=== PATIENT | male | born 1950 | race Caucasian/White ===

== ENCOUNTER 2016-11-25 11:18 | Inpatient (IN) | payer OTHER ==
[~2016-11-25] VITALS: Ht 182.9 cm; Wt 128.0 kg
[~2016-11-25 11:18] MED LIST: DEBROX15 ML RIGHT EAR; MOTRIN800 MG PO; NOHOMEMEDS; TYLENOL325 M1 PO
[2016-11-25 12:48] LABS: HEMATOCRIT 42.5 % (38.0-50.0); MCH 31.3 PG (29.0-34.0); MCHC 33.2 G/DL (30.0-36.0); MCV 94.2 FL (86-99); MEAN PLAT.VOLUME 9.6 uM^3 (9.0-12.4); PLATELET COUNT 237 K/uL (156-360); RBC DIS.WIDTH-SD 46.1 % (39-53); RED BLOOD COUNT 4.51 M/uL (4.00-5.50); WHITE BLOOD COUNT 4.7 K/uL (4.1-10.2)
[2016-11-25 12:57] LABS: CHLORIDE 103 mEq/L (99-109); POTASSIUM 4.3 mEq/L (3.7-5.4); SODIUM 138 mEq/L (136-147)
[2016-11-25 12:59] LABS: GLUCOSE 129 mg/dL (70-99)
[2016-11-25 13:00] LABS: ANION GAP 10 MEQ/L (2-14)
[2016-11-25 13:03] LABS: GFR ESTIMATE (CALCULATED) > 59 mL/min/
[2016-11-25 13:04] LABS: UREA NITROGEN (BUN) 6 mg/dL (9-23)
[2016-11-25 14:13] LABS: TROP-I INTERPRETATION NEGATIVE; TROPONIN-I 0.01 ng/mL (0.0-0.30)
[2016-11-25] MEDS ORDERED: ALEVE220 MG PO (14:53)
[2016-11-25 18:04] VITALS: BP 153/79
[2016-11-26] VITALS (7 sets, daily range): BP systolic 113–140; BP diastolic 56–73
[2016-11-26 07:41] LABS: HDL CHOLESTEROL 38 MG/DL (Desirable>=40); LDL CHOLESTEROL 109 mg/dL (Desirable<100); NON-HDL CHOLESTEROL 129 mg/dL (Desirable<160); TOTAL CHOLESTEROL 167 mg/dL (Desirable<200); TRIGLYCERIDES 100 MG/DL (Normal: <150)
[2016-11-26 09:01] LABS: Estimated Average Glucose 143 mg/dL (70-123); HEMOGLOBIN A1c (GLYCOHEMOGLOB) 6.6 % HGB (Below 5.7)
[2016-11-27 04:09] VITALS: BP 127/68
[2016-11-27 07:45] VITALS: BP 148/60
[2016-11-27 11:43] VITALS: BP 147/84
[2016-11-27] MEDS ORDERED: PYRIDOSTIGMINE60 MG PO (13:27)
[2016-11-27] MEDS ORDERED: METFORMIN HCL500 MG PO (13:27)
== END 2016-11-27 14:40 | disposition home or self-care (01) | DRG 57 ==
LOC: EME 11:18 → 5SOUTH 16:25 → EDOF 16:25 → 5SOUTH 18:00
PROVIDERS: Hospitalist
DX: G70.01 Myasthenia gravis with (acute) exacerbation (principal); E11.65 Type 2 diabetes mellitus with hyperglycemia; I10 Essential (primary) hypertension; H53.2 Diplopia; M19.90 Unspecified osteoarthritis, unspecified site; R42 Dizziness and giddiness; H02.401 Unspecified ptosis of right eyelid; Z79.84 Long term (current) use of oral hypoglycemic drugs
CPT/HCPCS: 70450; 70551; 71020; 80048; 80061; 83036; 83880; 84238 90; 84484; 85027; 93005; 93306; 93880; 99281; 99285; J1644; J2060; J7512